=== PATIENT | male | born 1995 | race Caucasian/White ===

== ENCOUNTER 2017-02-22 03:32 | Emergency (ER) | payer OTHER ==
[2017-02-22] MEDS ORDERED: Ondansetron ODT 4 MG TAB ONE (03:46)
[2017-02-22] MEDS ORDERED: Acetaminophen 500 MG TAB ONE (03:46)
[2017-02-22] MEDS ORDERED: Ibuprofen 100 MG/5 ML UDCUP ONE (04:16)
[2017-02-22 04:18] LABS: Blood, Urine Negative (Negative); Clarity Clear (Clear); Glucose, Urine (Dipstick) 100 mg/dL (Negative); Leukocyte Negative (Negative); Nitrite Negative (Negative); Protein, Urine (Dipstick) 30 mg/dL (Neg-Trace); pH, Urine 5.5 (5.0-9.0)
[2017-02-22 04:19] LABS: Bilirubin Negative (Negative); Icto Negative (Negative); Specific Gravity, Urine 1.032 (1.002-1.036)
[2017-02-22 04:26] LABS: Bacteria/HPF None Seen HPF (None Seen); RBC/HPF None Seen HPF (0-3); Squamous Epithelial None Seen HPF (0-3); WBC/HPF 0-3 HPF (0-3)
[2017-02-22 04:39] LABS: Hemoglobin 14.8 g/dL (14.0-18.0); Mean Corpuscular HGB CONC 35.4 g/dL (32.0-36.0); Mean Corpuscular Hemoglobin 31.2 pg (25.0-35.0); Mean Corpuscular Volume 88.1 fl (77.0-87.0); Mean Platelet Volume 7.2 fL (7.4-10.4); Platelet Count 273 thou/uL (130-400); RBC Distribution Width 10.6 % (11.5-14.5); Red Blood Cell (RBC) Count 4.75 mill/uL (4.00-5.20); White Blood Cell (WBC) Count 23.6 thou/uL (4.8-10.8)
[2017-02-22 04:40] LABS: ALT (SGPT) 13 U/L (8-55); AST (SGOT) 15 U/L (10-45); Albumin 4.7 g/dL (3.5-5.0); Alkaline Phosphatase 103 U/L (Less than 750); Anion Gap 16 mmol/L (10-20); BUN (Urea Nitrogen) 7 mg/dL (8.4-21.0); Band 25 % (5-11); Bilirubin, Total 2.7 mg/dL (0.2-1.2); Calc. Creatinine Clearance 0 mL/min (70-130); Calcium 9.4 mg/dL (7.8-10.44); Carbon Dioxide 23 mmol/L (22-29); Chloride 100 mmol/L (98-107); Estimated GFR-MDRD Greater than 90; Glucose 128 mg/dL (70-105); Lipase 6 U/L (8-78); Lymphocytes 5 % (28-48); MDiff Complete? YES; Monocytes 5 % (0-4); Neutrophil 65 % (31-61); PLT Morphology Comment Appears Adequate; Potassium 3.6 mmol/L (3.5-5.1); Protein, Total 7.7 g/dL (6.0-8.3); RBC Morphology Normal; Sodium 135 mmol/L (136-145)
[2017-02-22] MEDS ORDERED: Morphine Sulfate 2 MG/ML SYRINGE ONE (04:47)
[2017-02-22] MEDS ORDERED: Sodium Chloride 0.9% 2,000 ML ONE (04:47)
[2017-02-22] MEDS ORDERED: Famotidine/PF 20 mg/2ml Vial ONE (04:48)
[2017-02-22] MEDS ORDERED: Sodium Chloride 0.9% 100 ML ONE (06:29)
[2017-02-22] MEDS ORDERED: cefTRIAXone\\ROCEPHIN 1 GM VIAL ONE (06:29)
[2017-02-22] MEDS ORDERED: Iopamidol 370 76% 100 ML VIAL ONE (09:00)
--- NOTE | 2017-02-22 09:25 | CT ---
PRELIMINARY REPORT/[facility]/EMERGENCY AFTER HOURS PROCEDURE: EXAM: CT Abdomen and Pelvis With Intravenous Contrast CLINICAL HISTORY: 21 years old, male; Pain; Abdominal pain; Flank; Right lower quadrant (rlq); Patient HX: Vomiting; F ever; Abdominal pain TECHNIQUE: Axial computed tomography images of the abdomen and pelvis with intravenous contrast. This CT exam was performed using one or more of the following dose reduction techniques: automated exposure contr ol, adjustment of the mA and/or kV according to patient size, and/or use of iterative reconstruction technique. Coronal and sagittal reformatted images were created and reviewed. CONTRAST: 97 mL of ISOVUE 370 administered intravenously. COMPARISON: No relevant prior studies available. FINDINGS: Lower thorax: No acute findings. ABDOMEN: Liver: Unremarkable. No mass. Gallbladder and bile ducts: Unremarkable. No calcified stones. No ductal dilation. Pancreas: Unremarkable. No mass. No ductal dilation. Spleen: Unremarkable. No splenomegaly. Adrenals: Unremarkable. No mass. Kidneys and ureters: Mild heterogeneity to the kidneys greater on the right with questioned faint st riations. Left renal cyst in the upper pole No solid mass. No hydronephrosis. Stomach and bowel: Fluid-filled small bowel loops in the lower abdomen and pelvis No obstruction. No mucosal thickening. Appendix: No findings to suggest acute appendicitis. PELVIS: Bladder: Decompressed. Reproductive: Unremarkable as visualized. ABDOMEN and PELVIS: Intraperitoneal space: Unremarkable. No free air. No significant fluid collection. Bones/joints: No acute fracture. No dislocation. Soft tissues: Unremarkable. Vasculature: Unremarkable. No abdominal aortic aneurysm. Lymph nodes: Unremarkable. No enlarged lymph nodes. IMPRESSION: Presumed bilateral pyelonephritis Nonspecific nonobstructed bowel gas pattern No CT evidence for appendicitis Thank you for allowing us to participate in the care of your patient. Dictated and Authenticated by: Cj Myers MD 02/22/2017 6:25 AM Central Time ([place] \T\ [place]) FINAL REPORT CT ABDOMEN AND PELVIS WITH IV CONTRAST: Date: 02-22-17 Performed on emergency basis at 0532 hours. History: Abdominal pain. Fever and vomiting. FINDINGS: I agree with the preliminary report by Dr. Myers from [facility]. Left renal cyst is noted. No urinary tract obstruction is evident. Heterogeneous enhancement of the kidneys is nonspecific, a lthough there are no direct findings of inflammation. Lack of oral contrast limits evaluation of the bowel. Appendix is not well visualized. No inflammati on is evident. POS: [facility]
== END 2017-02-22 07:20 | disposition home or self-care (01) ==
LOC: NAV ERS 03:32
DX: N12 Tubulo-interstitial nephritis, not specified as acute or chronic (principal); J45.909 Unspecified asthma, uncomplicated; F31.9 Bipolar disorder, unspecified; F41.9 Anxiety disorder, unspecified; F90.9 Attention-deficit hyperactivity disorder, unspecified type
CPT/HCPCS: 74177; 80053; 81003; 81015; 83605; 83690; 85025; 87081; 87430; 96361; 96365; 96375; J0696; J2270; J7050; Q0162; S0028

== ENCOUNTER 2017-02-26 15:36 | Emergency (ER) | payer OTHER ==
[2017-02-26] MEDS ORDERED: Ibuprofen 200 MG TAB ONE (16:20)
[2017-02-26 17:02] LABS: #Basophils 0.1 thou/uL (0.0-0.2); #Eosinphils 0.3 thou/uL (0.0-0.7); #Lymphocytes 3.4 thou/uL (1.20-3.40); #Monocytes 0.7 thou/uL (0.11-0.59); #Neutrophils 3.1 thou/uL (1.40-6.50); %Basophils 1.5 % (0.0-1.0); %Eosinophils 4.4 % (0.0-10.0); %Lymphocytes 44.1 % (28.0-48.0); %Monocytes 9.6 % (0.0-4.0); %Neutrophils 40.3 % (31.0-61.0); Bilirubin Negative (Negative); Blood, Urine Negative (Negative); Glucose, Urine (Dipstick) Negative (Negative); Hemoglobin 15.1 g/dL (14.0-18.0); Leukocyte Negative (Negative); Mean Corpuscular HGB CONC 33.3 g/dL (32.0-36.0); Mean Corpuscular Hemoglobin 29.7 pg (25.0-35.0); Mean Corpuscular Volume 89.3 fl (77.0-87.0); Mean Platelet Volume 6.7 fL (7.4-10.4); Nitrite Negative (Negative); Platelet Count 377 thou/uL (130-400); Protein, Urine (Dipstick) Negative (Neg-Trace); RBC Distribution Width 10.9 % (11.5-14.5); Red Blood Cell (RBC) Count 5.09 mill/uL (4.00-5.20); Urobilinogen 0.2 mg/dL (0.2-1.0); White Blood Cell (WBC) Count 7.6 thou/uL (4.8-10.8); pH, Urine 7.5 (5.0-9.0)
[2017-02-26 17:08] LABS: Clarity Hazy (Clear); Specific Gravity, Urine 1.022 (1.002-1.036)
[2017-02-26 17:14] LABS: ALT (SGPT) 21 U/L (8-55); AST (SGOT) 24 U/L (10-45); Albumin 5.2 g/dL (3.5-5.0); Alkaline Phosphatase 102 U/L (Less than 750); Anion Gap 16 mmol/L (10-20); BUN (Urea Nitrogen) 9 mg/dL (8.4-21.0); Calc. Creatinine Clearance 0 mL/min (70-130); Calcium 10.2 mg/dL (7.8-10.44); Carbon Dioxide 27 mmol/L (22-29); Chloride 100 mmol/L (98-107); Estimated GFR-MDRD Greater than 90; Globulin 3.8 g/dL (2.4-3.5); Glucose 91 mg/dL (70-105); Lipase 13 U/L (8-78); Potassium 4.2 mmol/L (3.5-5.1); Sodium 139 mmol/L (136-145)
== END 2017-02-26 17:45 | disposition home or self-care (01) ==
LOC: NAV ERS 15:36
DX: R10.31 Right lower quadrant pain (principal); R10.32 Left lower quadrant pain; J02.0 Streptococcal pharyngitis; J45.909 Unspecified asthma, uncomplicated; F41.9 Anxiety disorder, unspecified; F31.9 Bipolar disorder, unspecified; F90.9 Attention-deficit hyperactivity disorder, unspecified type; F17.210 Nicotine dependence, cigarettes, uncomplicated; Z79.891 Long term (current) use of opiate analgesic; Z79.2 Long term (current) use of antibiotics; Z79.899 Other long term (current) drug therapy
CPT/HCPCS: 80053; 81003; 83690; 85025; 99284

== ENCOUNTER 2017-05-16 15:01 | Emergency (ER) | payer BC, OTHER | END 2017-05-16 15:35 | disposition home or self-care (01) | LOC: NAV ERS 15:01 | DX: H10.33 Unspecified acute conjunctivitis, bilateral (principal); J45.909 Unspecified asthma, uncomplicated; F31.9 Bipolar disorder, unspecified; F41.9 Anxiety disorder, unspecified; F17.210 Nicotine dependence, cigarettes, uncomplicated | CPT/HCPCS: 99283 ==

== ENCOUNTER 2018-07-15 14:06 | Emergency (ER) | payer BC | END 2018-07-15 14:45 | disposition home or self-care (01) | LOC: NAV ERS 14:06 | DX: K02.9 Dental caries, unspecified (principal); F31.9 Bipolar disorder, unspecified; F41.9 Anxiety disorder, unspecified; F90.9 Attention-deficit hyperactivity disorder, unspecified type; F17.210 Nicotine dependence, cigarettes, uncomplicated; J45.909 Unspecified asthma, uncomplicated | CPT/HCPCS: 99282 ==

== ENCOUNTER 2018-07-18 02:45 | Emergency (ER) | payer BC ==
[2018-07-18] MEDS ORDERED: Lidocaine Viscous Sol 2% 15 ml UD Cup ONE (03:09)
[2018-07-18] MEDS ORDERED: cefTRIAXone\\ROCEPHIN 1 GM VIAL ONE (03:48)
[2018-07-18] MEDS ORDERED: Lidocaine 1% (PF) 30 ML VIAL ONE (03:49)
[2018-07-18] MEDS ORDERED: Amoxicillin/Potassium Clav 875 MG TAB ONE (03:52)
== END 2018-07-18 04:17 | disposition home or self-care (01) ==
LOC: NAV ERS 02:45
DX: K04.7 Periapical abscess without sinus (principal); J45.909 Unspecified asthma, uncomplicated; F31.9 Bipolar disorder, unspecified; F41.9 Anxiety disorder, unspecified; F90.9 Attention-deficit hyperactivity disorder, unspecified type; F17.210 Nicotine dependence, cigarettes, uncomplicated
CPT/HCPCS: 41800; 96372; J0696; J2001

== ENCOUNTER 2019-09-30 19:08 | Emergency (ER) | payer BC | END 2019-09-30 20:08 | disposition home or self-care (01) | LOC: NAV ERS 19:08 | DX: K02.9 Dental caries, unspecified (principal); F41.9 Anxiety disorder, unspecified; F31.9 Bipolar disorder, unspecified; F90.9 Attention-deficit hyperactivity disorder, unspecified type; F17.210 Nicotine dependence, cigarettes, uncomplicated | CPT/HCPCS: 99281 ==

== ENCOUNTER 2019-10-04 00:56 | Emergency (ER) | payer BC ==
[2019-10-04] MEDS ORDERED: Bupivacaine 0.5% 10 ML VIAL ONE (01:24)
[2019-10-04] MEDS ORDERED: traMADol HCl 50 MG TAB ONE (01:44)
[2019-10-04] MEDS ORDERED: Ondansetron ODT 4 MG TAB ONE (01:45)
[2019-10-04] MEDS ORDERED: Cephalexin 250 MG CAP ONE (01:45)
== END 2019-10-04 01:48 | disposition home or self-care (01) ==
LOC: NAV ERS 00:56
DX: K02.9 Dental caries, unspecified (principal); J45.909 Unspecified asthma, uncomplicated; F41.9 Anxiety disorder, unspecified; F31.9 Bipolar disorder, unspecified; F90.9 Attention-deficit hyperactivity disorder, unspecified type; F17.210 Nicotine dependence, cigarettes, uncomplicated
CPT/HCPCS: 99282; J3490; Q0162

== ENCOUNTER 2020-04-13 18:01 | Emergency (ER) | payer BC ==
[2020-04-13 18:39] LABS: Bilirubin Negative (Negative); Blood, Urine Negative (Negative); Clarity Clear (Clear); Glucose, Urine (Dipstick) Negative (Negative); Ketone, Urine 40 mg/dL (Negative); Leukocyte Negative (Negative); Nitrite Negative (Negative); Protein, Urine (Dipstick) Negative (Neg-Trace); Specific Gravity, Urine 1.015 (1.005-1.030); pH, Urine 7.5 (5.0-9.0)
[2020-04-13 18:45] LABS: #Basophils 0.1 thou/uL (0.0-0.2); #Lymphocytes 3.7 thou/uL (1.20-3.40); #Monocytes 0.8 thou/uL (0.11-0.59); #Neutrophils 8.7 thou/uL (1.40-6.50); %Basophils 0.9 % (0.0-1.0); %Eosinophils 0.2 % (0.0-10.0); %Lymphocytes 27.5 % (21.0-51.0); %Monocytes 6.2 % (0.0-10.0); %Neutrophils 65.2 % (42.0-75.0); Mean Corpuscular Hemoglobin 29.9 pg (27.0-31.0); Mean Corpuscular Volume 93.6 fL (78.0-98.0); Mean Platelet Volume 7.7 fL (7.4-10.4); Platelet Count 366 thou/uL (130-400); Red Blood Cell (RBC) Count 5.34 mill/uL (4.70-6.10); White Blood Cell (WBC) Count 13.4 thou/uL (4.8-10.8)
[2020-04-13 18:50] LABS: ALT (SGPT) 18 U/L (8-55); AST (SGOT) 23 U/L (5-34); Albumin 5.5 g/dL (3.5-5.0); Alcohol Less than 10 mg/dL (Less than 10); Alkaline Phosphatase 121 U/L (40-110); Anion Gap 19 mmol/L (10-20); BUN (Urea Nitrogen) 12 mg/dL (8.9-20.6); Bilirubin, Total 1.8 mg/dL (0.2-1.2); CK (CPK) 153 U/L (30-200); Calc. Creatinine Clearance 0 mL/min (70-130); Calcium 10.4 mg/dL (7.8-10.44); Carbon Dioxide 21 mmol/L (22-29); Chloride 101 mmol/L (98-107); Estimated GFR-MDRD Greater than 90; Globulin 3.7 g/dL (2.4-3.5); Glucose 102 mg/dL (70-105); Protein, Total 9.2 g/dL (6.0-8.3); Sodium 137 mmol/L (136-145)
[2020-04-13 18:53] LABS: Amphetamine Not Detected (NotDetected); Barbiturates Screen Not Detected (NotDetected); Benzodiazepine Screen Not Detected (NotDetected); Cocaine Metabolite Screen Not Detected (NotDetected); Methadone Not Detected (NotDetected); Methamphetamine Not Detected (NotDetected); Opiate Screen Not Detected (NotDetected); Oxycodone Screen Not Detected (NotDetected); Phencyclidine (PCP) Not Detected (NotDetected); THC/Cannabinoid Screen Not Detected (NotDetected); Tricyclic Screen Not Detected (NotDetected)
[2020-04-13 18:54] LABS: Medtox Control Line Valid? VALID (VALID)
== END 2020-04-13 21:52 | disposition home or self-care (01) ==
LOC: NAV ERS 18:01
DX: F19.10 Other psychoactive substance abuse, uncomplicated (principal); J45.909 Unspecified asthma, uncomplicated; F31.9 Bipolar disorder, unspecified; F90.9 Attention-deficit hyperactivity disorder, unspecified type; F17.210 Nicotine dependence, cigarettes, uncomplicated
CPT/HCPCS: 80053; 80306; 80307; 81003; 82550; 84443; 85025; 99284

== ENCOUNTER 2020-05-25 19:13 | Emergency (ER) | payer BC ==
[2020-05-25] MEDS ORDERED: cefTRIAXone\\ROCEPHIN 1 GM VIAL ONE (19:46)
[2020-05-25] MEDS ORDERED: Ketorolac Tromethamine 30 MG/ML VIAL ONE (19:46)
[2020-05-25] MEDS ORDERED: Clindamycin 150 MG CAP ONE (19:46)
[2020-05-25] MEDS ORDERED: Dexamethasone 20 MG/5 ML VIAL ONE (19:46)
== END 2020-05-25 20:26 | disposition home or self-care (01) ==
LOC: NAV ERS 19:13
DX: K04.7 Periapical abscess without sinus (principal); K02.9 Dental caries, unspecified; J45.909 Unspecified asthma, uncomplicated; F41.9 Anxiety disorder, unspecified; F31.9 Bipolar disorder, unspecified; F90.9 Attention-deficit hyperactivity disorder, unspecified type; F17.210 Nicotine dependence, cigarettes, uncomplicated; Z79.899 Other long term (current) drug therapy
CPT/HCPCS: 96372; 99283; J0696; J1100; J1885

== ENCOUNTER 2021-04-21 11:22 | Emergency (ER) | payer BC | END 2021-04-21 11:48 | disposition home or self-care (01) | LOC: NAV ERS 11:22 | DX: G89.29 Other chronic pain (principal); M54.5 Low back pain; F17.210 Nicotine dependence, cigarettes, uncomplicated | CPT/HCPCS: 99281 ==

== ENCOUNTER 2021-05-19 05:24 | Emergency (ER) | payer BC ==
[2021-05-19] MEDS ORDERED: Clindamycin 150 MG CAP ONE (06:23)
== END 2021-05-19 06:25 | disposition home or self-care (01) ==
LOC: NAV ERS 05:24
DX: K08.89 Other specified disorders of teeth and supporting structures (principal); F17.210 Nicotine dependence, cigarettes, uncomplicated; F17.290 Nicotine dependence, other tobacco product, uncomplicated
CPT/HCPCS: 99283

== ENCOUNTER 2022-03-08 16:25 | Emergency (ER) | payer BC, OTHER ==
[2022-03-08] MEDS ORDERED: Lidocaine 1% (PF) 30 ML VIAL ONE (17:16)
[2022-03-08] MEDS ORDERED: Ibuprofen 800 MG TAB ONE (17:32)
[2022-03-08] MEDS ORDERED: Bacitracin 1 PK ONE (17:32)
== END 2022-03-08 17:39 | disposition home or self-care (01) ==
LOC: NAV ERS 16:25
DX: S06.9X1A Unspecified intracranial injury with loss of consciousness of 30 minutes or less, initial encounter (principal); S01.81XA Laceration without foreign body of other part of head, initial encounter; F17.210 Nicotine dependence, cigarettes, uncomplicated; X58.XXXA Exposure to other specified factors, initial encounter
CPT/HCPCS: 12011; 70450; J2001

== ENCOUNTER 2022-03-29 16:34 | Emergency (ER) | payer OTHER, BC | END 2022-03-29 16:45 | disposition home or self-care (01) | LOC: NAV ERS 16:34 | DX: S01.112D Laceration without foreign body of left eyelid and periocular area, subsequent encounter (principal); Z48.02 Encounter for removal of sutures ==

== ENCOUNTER 2022-05-11 15:59 | Emergency (ER) | payer OTHER, BC ==
[~2022-05-11 15:59] MED LIST: Iopamidol 370 76% 100 ML VIAL ONE
[2022-05-11 16:33] LABS: #Basophils 0.1 thou/uL (0.0-0.2); #Lymphocytes 2.5 thou/uL (1.20-3.40); #Monocytes 0.9 thou/uL (0.11-0.59); #Neutrophils 6.1 thou/uL (1.40-6.50); %Basophils 0.7 % (0.0-1.0); %Eosinophils 0.2 % (0.0-10.0); %Lymphocytes 26.2 % (21.0-51.0); %Monocytes 9.4 % (0.0-10.0); %Neutrophils 63.6 % (42.0-75.0); Hemoglobin 16.5 g/dL (14.0-18.0); Mean Corpuscular HGB CONC 33.7 g/dL (32.0-36.0); Mean Corpuscular Hemoglobin 31.8 pg (27.0-31.0); Mean Corpuscular Volume 94.4 fL (78.0-98.0); Mean Platelet Volume 7.1 fL (7.4-10.4); Platelet Count 306 thou/uL (130-400); RBC Distribution Width 11.7 % (11.5-14.5); Red Blood Cell (RBC) Count 5.17 mill/uL (4.70-6.10); White Blood Cell (WBC) Count 9.6 thou/uL (4.8-10.8)
[2022-05-11] MEDS ORDERED: Orphenadrine Citrate 60 MG/2 ML VIAL ONE (16:40)
[2022-05-11 16:47] LABS: ALT (SGPT) 18 U/L (8-55); AST (SGOT) 19 U/L (5-34); Albumin 5.4 g/dL (3.5-5.0); Alkaline Phosphatase 83 U/L (40-110); Anion Gap 16 mmol/L (10-20); BUN (Urea Nitrogen) 13 mg/dL (8.9-20.6); Bilirubin, Total 1.6 mg/dL (0.2-1.2); Calc. Creatinine Clearance 0 mL/min (70-130); Calcium 9.9 mg/dL (7.8-10.44); Carbon Dioxide 25 mmol/L (22-29); Chloride 104 mmol/L (98-107); Estimated GFR 125; Globulin 3.4 g/dL (2.4-3.5); Glucose 106 mg/dL (70-105); Potassium 3.4 mmol/L (3.5-5.1); Protein, Total 8.8 g/dL (6.0-8.3); Sodium 142 mmol/L (136-145)
[2022-05-11] MEDS ORDERED: Ondansetron PF 4 MG/2 ML Vial ONE (17:24)
== END 2022-05-11 17:51 | disposition home or self-care (01) ==
LOC: NAV ERS 15:59
DX: S33.5XXA Sprain of ligaments of lumbar spine, initial encounter (principal); S39.012A Strain of muscle, fascia and tendon of lower back, initial encounter; F17.210 Nicotine dependence, cigarettes, uncomplicated; V89.2XXA Person injured in unspecified motor-vehicle accident, traffic, initial encounter
CPT/HCPCS: 70450; 71260; 72125; 74177; 80053; 85025; 96374; 96375; J2360; J2405; Q9967

== ENCOUNTER 2023-06-25 10:21 | Emergency (ER) | payer SELFPAY ==
[2023-06-25] MEDS ORDERED: diphenhydrAMINE 25 MG CAP ONE (11:03)
[2023-06-25] MEDS ORDERED: predniSONE 20 MG TAB ONE (11:03)
== END 2023-06-25 11:08 | disposition home or self-care (01) ==
LOC: NAV ERS 10:21
DX: L25.9 Unspecified contact dermatitis, unspecified cause (principal)
CPT/HCPCS: 99282; J7512

== ENCOUNTER 2025-03-04 13:18 | Emergency (ER) | payer OTHER, SELFPAY ==
[2025-03-04] MEDS ORDERED: Boostrix 0.5 ML (Tdap) VIAL (>/=7 yrs of age) ONE (14:23)
[2025-03-04] MEDS ORDERED: Bacitracin 1 PK ONE (14:23)
== END 2025-03-04 14:30 | disposition home or self-care (01) ==
LOC: NAV ERS 13:18
DX: T65.891A Toxic effect of other specified substances, accidental (unintentional), initial encounter (principal); T21.55XA Corrosion of first degree of buttock, initial encounter; K08.89 Other specified disorders of teeth and supporting structures; Z23 Encounter for immunization; Z87.891 Personal history of nicotine dependence
CPT/HCPCS: 90471; 90715